=== PATIENT | male | born 1970 | race Caucasian/White ===

== ENCOUNTER 2022-05-23 17:15 | Inpatient (IN) | payer OTHER ==
[~2022-05-23] VITALS: Ht 172.7 cm; Wt 87.1 kg
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
[2022-05-23] MEDS ORDERED: FENTANYL PF 100MCG/2ML AMPUL ONE (18:07)
--- NOTE | 2022-05-23 18:13 | NUR ---
PT TAKEN TO RADIOLOGY FOR CHEST CT SCAN VIA RELDA.
[2022-05-23] MEDS ORDERED: FENTANYL PF 100MCG/2ML AMPUL IM ONE (18:30)
--- NOTE | 2022-05-23 19:11 | NUR ---
COVID SWAB COLLECTED AND SENT TO LAB
[2022-05-23] MEDS ORDERED: MORPHINE SULFATE INJ 2 MG/ML DISP.SYRIN IV ONE (19:30)
[2022-05-23] MEDS ORDERED: MORPHINE SULFATE INJ 4 MG/ML DISP.SYRIN ONE (19:34)
[2022-05-23] MEDS ORDERED: HYDROMORPHONE 1 MG/1 ML DISP.SYRIN IV ONE (20:30)
[2022-05-23] MEDS ORDERED: KETOROLAC TROMETHAMINE INJ 30 MG/ML VIAL IV ONE (20:30)
[2022-05-23] MEDS ORDERED: KETOROLAC TROMETHAMINE 15 MG/ML VIAL ONE (20:31)
[2022-05-23 21:21] LABS: BASOPHILS % (AUTO) 0.3 % (0.0-2.0); HEMATOCRIT 39 % (39-51); HEMOGLOBIN 12.8 g/dL (13.5-17.5); MEAN CORPUSCULAR HGB CONC 33 g/dl (31.0-36.0); MEAN CORPUSCULAR VOLUME 90 fL (80-96); MONOCYTES # (AUTO) 0.7 K/uL (0.1-1.30); MONOCYTES % (AUTO) 6.3 % (2.0-12.0); NEUTROPHILS # (AUTO) 9.3 K/uL (1.8-8.9); NEUTROPHILS % (AUTO) 84.4 % (43.0-81.0); PLATELET COUNT (AUTO) 220 K/uL (150-450); RED BLOOD CELL COUNT(AUTO) 4.31 MIL/uL (4.5-6.0)
[2022-05-23 21:30] LABS: CALCIUM, SERUM 8.9 mg/dL (8.5-10.1); POTASSIUM 4.1 mmol/L (3.5-5.1)
[2022-05-23] MEDS ORDERED: MAG HYDROX/AL HYDROX/SIMETH 30 ML UDC PO PRN (21:30)
[2022-05-23] MEDS ORDERED: ACETAMINOPHEN 325 MG TABLET PO PRN (21:30)
[2022-05-23] MEDS ORDERED: MAGNESIUM HYDROXIDE 30 ML UDC PO PRN (21:30)
[2022-05-23] MEDS ORDERED: Z GUARD REMEDY 4 OZ OINT TP PRN (21:30)
[2022-05-23] MEDS ORDERED: ONDANSETRON HCL/PF 4 MG/2 ML VIAL IVP PRN (21:30)
--- NOTE | 2022-05-23 22:15 | NUR ---
REPORT GIVEN TO JAKE ESPINO FOR CIRA
[2022-05-23 22:40] VITALS: BP 153/89
[2022-05-23 22:48] VITALS: BP 147/84
--- NOTE | 2022-05-23 22:48 | NUR ---
ADMISSION 52 year old male arrived to unit via gurney, transferred to bed with 3 people. Patient in A/O x4, limited body movement d/t right rib pain. Unable to fully assess skin at this time, patient refused to turned on his side d/t pain. [place] to room, unit, staff. Instructed on how to use call device for assistance. Fall precaution maintained.
[2022-05-23] MEDS: MORPHINE SULFATE INJ 2 MG/ML DISP.SYRIN IV PRN (23:06)
--- NOTE | 2022-05-23 23:06 | NUR ---
RIB PAIN Stable on room air, denies sob. Pain continuous per patient, c/o right lower rib pain 10/10. Given IV Morphine, will reassess pain level.
[2022-05-24] VITALS (7 sets, daily range): BP systolic 128–161; BP diastolic 66–91
--- NOTE | 2022-05-24 00:14 | NUR ---
LUNG SOUNDS Turned and repositioned patient, made comfortable in bed. Medicated prior repositioning. Loud popping sound heard in right lower rib, patient no c/o chest pain. SBP high 160's. Oxygen sat 98% in RA. Notified SIGN PAINTER Moy with no new orders at this time.
[2022-05-24] MEDS: HYDROCODONE/APAP 5/325MG TABLET PO PRN ×2 (01:09→21:19)
[2022-05-24] MEDS: MORPHINE SULFATE INJ 2 MG/ML DISP.SYRIN IV PRN ×2 (03:08→06:55)
--- NOTE | 2022-05-24 06:18 | NUR ---
END OF SHIFT REPORT Patient in bed, A/O x4. Sinus sohail in the Tele monitor HR 55. Left hand IV peripheral line intact. Right upper/lower rib cage pain managed with IV Morphine, mild movement aggravates more pain. Oxygen sat high 90's in RA, denies sob, no c/o chest pain. Plan for Pulmonology consult. Will endorse to oncoming RN.
--- NOTE | 2022-05-24 07:30 | NUR ---
CROSS CUT SAW OPERATOR NOTES PT IN BED, AWAKE, ALERT AND ORIENTED, NO COMPLAINT AT THIS TIME, NOT IN DISTRESS, RESPIRATIONS NORMAL, CALL LIGHT WITHIN REACH, NEEDS ATTENDED.
[2022-05-24] MEDS: PANTOPRAZOLE 40 MG TABLET.DR PO SCH (09:09)
--- NOTE | 2022-05-24 10:37 | NUR ---
CHILD AND FAMILY SERVICES WORKER NOTES PT SEEN AND EXAMINED BY DR. CONCEPCION, ORDERS GIVEN.
[2022-05-24] MEDS: HYDROMORPHONE 1 MG/1 ML DISP.SYRIN IV PRN ×4 (10:47→22:28)
[2022-05-24] MEDS ORDERED: HYDROMORPHONE MDV 1 MG in IV D5W 50 ML IV PRN (11:00)
[2022-05-24 15:17] LABS: BASOPHILS % (AUTO) 0.2 % (0.0-2.0); EOSINOPHILS % (AUTO) 0.4 % (0.0-6.0); HEMATOCRIT 40 % (39-51); LYMPHOCYTES # (AUTO) 1.9 K/uL (0.8-4.8); LYMPHOCYTES % (AUTO) 23.4 % (20.0-44.0); MEAN CORPUSCULAR HGB CONC 33 g/dl (31.0-36.0); MEAN CORPUSCULAR VOLUME 90 fL (80-96); MONOCYTES # (AUTO) 0.9 K/uL (0.1-1.30); MONOCYTES % (AUTO) 11.2 % (2.0-12.0); NEUTROPHILS # (AUTO) 5.3 K/uL (1.8-8.9); NEUTROPHILS % (AUTO) 64.8 % (43.0-81.0); PLATELET COUNT (AUTO) 211 K/uL (150-450); RED BLOOD CELL COUNT(AUTO) 4.38 MIL/uL (4.5-6.0); WHITE BLOOD COUNT (AUTO) 8.1 K/uL (4.3-11.0)
[2022-05-24 15:35] LABS: CALCIUM, SERUM 8.8 mg/dL (8.5-10.1); CREATININE 0.8 mg/dL (0.6-1.3); MAGNESIUM 2.2 mg/dL (1.8-2.4); PHOSPHORUS 3.3 mg/dL (2.5-4.9); POTASSIUM 3.9 mmol/L (3.5-5.1)
--- NOTE | 2022-05-24 18:38 | NUR ---
PLASTERER MAINTENANCE NOTES PT IN BED, SLEEPS INTERMITTENTLY, PAIN MEDS GIVEN ORDERED, VERBALIZES RELIEF AFTER ADMINISTRATION, SEEN BY DR. CONCEPCION TODAY, ALSO SEEN BY DR. LEVINE, VISITED BY PARENTS THIS AFTERNOON, PLAN OF CARE DISCUSSED WITH THEM, VERBALIZED UNDERSTANDING, NO SHORTNESS OF BREATH, SATURATING 97% ON ROOM AIR, ASSISTED WITH MEALS, NEEDS ATTENDED.
--- NOTE | 2022-05-24 19:37 | NUR ---
CARPENTER GENERAL OPENING NOTES PT IN BED, SLEEPS INTERMITTENTLY, PT NOTED WITH IV SITE AT LEFT HAND G#20, NO SHORTNESS OF BREATH, O2 SATURATION 97% ON ROOM AIR, SAFETY MEASURES IMPLEMENTED; BED IN LOWEST POSITION, BED LOCKED, CALL LIGHT WITHIN PATIENTS REACH. WILL CONTINUE TO MONITOR.
--- NOTE | 2022-05-24 21:19 | NUR ---
RN NOTE PRN NORCO 5-325MG GIVEN FOR BREAKTHROUGH PAIN 6/10 PAIN ON A NUMERIC PAIN SCALE TOLERATED WELL.
[2022-05-25] VITALS: BP 140/92
[2022-05-25] MEDS: HYDROMORPHONE 1 MG/1 ML DISP.SYRIN IV PRN ×4 (02:49→21:57)
--- NOTE | 2022-05-25 02:51 | NUR ---
RN NOTES PATIENT VERBALIZES PAIN 10/10. WAS GIVEN DAILUDID. WILL CONTINUE TO MONITOR.
[2022-05-25 04:00] VITALS: BP 143/90
--- NOTE | 2022-05-25 06:41 | NUR ---
HOOP COILING MACHINE OPERATOR CLOSING NOTES PATIENT IN BED SLEEPING EASILY AROUSED BY NAME, PATIENT NOTED WITH IV SITE AT LEFT HAND G#20, NO SHORTNESS OF BREATH, O2 SATURATION 98% ON ROOM AIR, SAFETY MEASURES IMPLEMENTED; BED IN LOWEST POSITION, BED LOCKED, CALL LIGHT WITHIN PATIENTS REACH. PAIN MEDICATION GIVING ACCORDINGLY WITH PAIN SCALE. WILL ENDORSE TO NEXT SHIFT NURSE FOR CONTINUITY IF CARE.
[2022-05-25 08:00] VITALS: BP 133/93
--- NOTE | 2022-05-25 08:08 | NUR ---
BAR FINISH OPERATOR OPENING NOTE Received patient asleep, but easily arousable to name, alert, oriented x 3, but disoriented to time. Patient c/o severe right rib pain, sharp and pulling in quality and constant. Gave patient dilaudid 1 mg IV push PRN pain. Will re-assess comfort level. Will continue to care for and monitor patient per MD POC.
[2022-05-25] MEDS: PANTOPRAZOLE 40 MG TABLET.DR PO SCH (08:16)
[2022-05-25] MEDS: HYDROCODONE/APAP 5/325MG TABLET PO PRN (11:32)
[2022-05-25 12:00] VITALS: BP 122/82
[2022-05-25] MEDS ORDERED: KETOROLAC TROMETHAMINE INJ 30 MG/ML VIAL IV ONE (15:00)
[2022-05-25 16:00] VITALS: BP 140/94
--- NOTE | 2022-05-25 18:53 | NUR ---
IS PROJECT MANAGER CLOSING NOTES PATIENT IN BED SLEEPING EASILY AROUSED BY NAME, PATIENT NOTED WITH IV SITE AT LEFT HAND G#20, PATENT & INTACT. NO SHORTNESS OF BREATH, O2 SATURATION 98% ON ROOM AIR, SAFETY MEASURES IMPLEMENTED; BED IN LOWEST POSITION, BED LOCKED, CALL LIGHT WITHIN PATIENTS REACH. PAIN MEDICATION GIVING ACCORDINGLY WITH PAIN SCALE. LAST PAIN ANALGESIC GIVEN AT 17:00 HRS, TORADOL 15 MG IV PUSH X 1 ORDERED DOSE. HOSPITALIST POC IS TO ENCOURAGE PATIENT TO TAKE PO NORCO ATC Q 4 HOURS AND USE THE IV DILAUDID LESS. WILL ENDORSE TO STATE ARCHIVIST NURSE FOR CONTINUITY OF CARE.
--- NOTE | 2022-05-25 19:41 | NUR ---
RN OPENING NOTES PATIENT IN BED SLEEPING EASILY AROUSED BY NAME, PATIENT NOTED WITH IV SITE AT LEFT HAND G#20, NO SHORTNESS OF BREATH, O2 SATURATION 98% ON ROOM AIR, SAFETY MEASURES IMPLEMENTED; BED IN LOWEST POSITION, BED LOCKED, CALL LIGHT WITHIN PATIENTS REACH.
[2022-05-25 20:14] VITALS: BP 123/84
--- NOTE | 2022-05-25 22:04 | NUR ---
RN NOTES PATIENT VERBALIZES PAIN SCALE 10/10. WAS GIVEN DAILUDID.
--- NOTE | 2022-05-25 22:34 | NUR ---
RN NOTES PATIENT WAS REASSESSED ABOUT PAIN. PAIN WAS RELIEVED 07/24.
[2022-05-26 00:44] VITALS: BP 125/82
[2022-05-26] MEDS: HYDROMORPHONE 1 MG/1 ML DISP.SYRIN IV PRN ×2 (04:01→08:04)
--- NOTE | 2022-05-26 04:01 | NUR ---
RN NOTES PATIENT VERBALIZES PAIN 10/10. WAS GIVEN DAILUDID. WILL REASSESS.
[2022-05-26 04:14] VITALS: BP 117/83
--- NOTE | 2022-05-26 06:40 | NUR ---
PERFORMING ARTIST CLOSING NOTES PATIENT IN BED SLEEPING EASILY AROUSED BY NAME, PATIENT NOTED WITH IV SITE AT LEFT HAND G#20, NO SHORTNESS OF BREATH, O2 SATURATION 98% ON ROOM AIR, SAFETY MEASURES IMPLEMENTED; BED IN LOWEST POSITION, BED LOCKED, CALL LIGHT WITHIN PATIENTS REACH. PAIN MEDICATION GIVING ACCORDINGLY WITH PAIN SCALE. ALL NEEDS ATTENDED TO. WILL ENDORSE TO NEXT SHIFT NURSE FOR CONTINUITY IF CARE.
--- NOTE | 2022-05-26 07:03 | NUR ---
FOX RAISER OPENING NOTES RECEIVED PATIENT AWAKE IN BED, A/Ox4 ABLE TO MAKE NEEDS KNOWN. ON ROOM AIR NO S/S OF RESPIRATORY DISTRESS. ON TELE MONITORING SHOWING SINUS RHYTHM HR 88. NO C/O OF CHEST PAIN OR CARDIAC DISCOMFORT. IV ACCESS L HAND #20G S/L. INTACT AND PATENT. PATIENT COMPLAINED OF PAIN 10/10 OF HIS R SIDE, HOWEVER EXPLAINED TO PATIENT THAT HIS IV PAIN MEDICATION IS NOT AVAILABLE TO GIVE. ASKED IF HE WOULD LIKE HIS PO PAIN MEDICATION, PATIENT REFUSED. PATIENT ON BEDREST, USES URINAL. SAFETY MEASURES IN PLACE: BED LOCKED AND IN LOWEST POSITION, HOB ELEVATED, SIDE RAILS UP x2, CALL LIGHT WITHIN REACH. WILL CONTINUE TO MONITOR.
[2022-05-26 08:00] VITALS: BP 116/77
[2022-05-26] MEDS: PANTOPRAZOLE 40 MG TABLET.DR PO SCH (08:04)
[2022-05-26] MEDS ORDERED: HYDROMORPHONE 1 MG/1 ML DISP.SYRIN IV PRN (11:00)
[2022-05-26] MEDS ORDERED: KETOROLAC TROMETHAMINE INJ 30 MG/ML VIAL IV PRN (11:00)
[2022-05-26] MEDS: HYDROCODONE/APAP 10/325MG TABLET PO PRN ×2 (11:42→17:45)
--- NOTE | 2022-05-26 11:43 | NUR ---
RN NOTES PATIENT COMPLAINED OF PAIN 11/23. EDUCATED PATIENT ON TRYING PO PAIN MEDICATION NARCO 10-325 MG FIRST. WILL CONTINUE TO MONITOR.
[2022-05-26 12:00] VITALS: BP 116/77
[2022-05-26 16:00] VITALS: BP 108/69
--- NOTE | 2022-05-26 17:50 | NUR ---
RN NOTES PATIENT COMPLAINED OF PAIN 10/23. PRN NARCO 10-325MG ADMINISTERED. WILL CONTINUE TO MONITOR.
--- NOTE | 2022-05-26 18:40 | NUR ---
DENIER CONTROL OPERATOR CLOSING NOTES PATIENT RESTING IN BED, A/Ox4 ABLE TO MAKE NEEDS KNOWN. STABLE ON ROOM AIR NO S/S OF RESPIRATORY DISTRESS. ON TELE MONITORING SHOWING SINUS RHYTHM HR 100. NO C/O OF CHEST PAIN OR CARDIAC DISCOMFORT. IV ACCESS L HAND #20G S/L. INTACT AND PATENT. PATIENT ON BEDREST, USES URINAL. PATIENT COMPLAINING OF PAIN BUT MANAGING WELL, RESTING IN BED. ALL PRESCRIBED MEDICATION ADMINISTERED. ALL NEEDS ATTENDED TO. SAFETY MEASURES MAINTAINED: BED LOCKED AND IN LOWEST POSITION, HOB ELEVATED, SIDE RAILS UP x2, CALL LIGHT WITHIN REACH. WILL ENDORSE TO NEXT SHIFT ANY CIRA.
--- NOTE | 2022-05-26 19:49 | NUR ---
FURRIER DESIGNER OPENING NOTES RECEIVED PATIENT RESTING IN BED, A/Ox4 ABLE TO MAKE NEEDS KNOWN. STABLE ON ROOM AIR NO S/S OF RESPIRATORY DISTRESS. ON TELE MONITORING SHOWING SINUS RHYTHM HR 98. NO C/O OF CHEST PAIN OR CARDIAC DISCOMFORT. IV ACCESS L HAND #20G SALINE LOCK. INTACT AND PATENT. PATIENT ON BEDREST, USES URINAL. PATIENT COMPLAINING OF PAIN BUT MANAGING WELL. SAFETY MEASURES MAINTAINED: BED LOCKED AND IN LOWEST POSITION, HOB ELEVATED, SIDE RAILS UP x2, CALL LIGHT WITHIN REACH.
[2022-05-26 20:00] VITALS: BP 103/65
--- NOTE | 2022-05-26 22:13 | NUR ---
RN NOTES PATIENT COMPLAINS OF PAIN SCALE OF 8/10. WAS GIVEN KETOROLAC. WILL REASSESS.
[2022-05-27] VITALS: BP 106/70
[2022-05-27 04:00] VITALS: BP 134/79
[2022-05-27] MEDS: HYDROCODONE/APAP 10/325MG TABLET PO PRN ×2 (05:20→11:36)
--- NOTE | 2022-05-27 06:44 | NUR ---
ROTARY DRILL RIG OPERATOR CLOSING NOTES PATIENT RESTING IN BED, A/Ox4 ABLE TO MAKE NEEDS KNOWN. STABLE ON ROOM AIR NO S/S OF RESPIRATORY DISTRESS. ON TELE MONITORING SHOWING SINUS RHYTHM HR 98. NO C/O OF CHEST PAIN OR CARDIAC DISCOMFORT. IV ACCESS L HAND #20G SALINE LOCK. INTACT AND PATENT. PATIENT ON BEDREST, USES URINAL. PATIENT COMPLAINING OF PAIN BUT MANAGING WELL. SAFETY MEASURES MAINTAINED: BED LOCKED AND IN LOWEST POSITION, HOB ELEVATED, SIDE RAILS UP x2, CALL LIGHT WITHIN REACH. WILL ENDORSED TO NEXT SHIFT FOR CONTINUITY OF CARE.
--- NOTE | 2022-05-27 07:40 | NUR ---
CASH APPLICATIONS ANALYST OPENING NOTES PATIENT SLEEPING IN BED, EASILY AWAKEN BY VERBAL AND TACTILE STIMULI, A/Ox4 ABLE TO MAKE NEEDS KNOWN. STABLE ON ROOM AIR NO S/S OF RESPIRATORY DISTRESS. ON TELE MONITORING SHOWING SINUS RHYTHM HR 90. NO C/O OF CHEST PAIN OR CARDIAC DISCOMFORT. IV ACCESS L HAND #20G SALINE LOCK. INTACT AND PATENT.SAFETY MEASURES MAINTAINED: BED LOCKED AND IN LOWEST POSITION, HOB ELEVATED, SIDE RAILS UP x2, CALL LIGHT WITHIN REACH. WILL CONTINUE TO MONITOR.
[2022-05-27] MEDS: PANTOPRAZOLE 40 MG TABLET.DR PO SCH (07:58)
[2022-05-27 10:57] LABS: BASOPHILS % (AUTO) 0.4 % (0.0-2.0); EOSINOPHILS % (AUTO) 6.4 % (0.0-6.0); HEMATOCRIT 42 % (39-51); HEMOGLOBIN 13.7 g/dL (13.5-17.5); LYMPHOCYTES # (AUTO) 1.6 K/uL (0.8-4.8); LYMPHOCYTES % (AUTO) 20.6 % (20.0-44.0); MEAN CORPUSCULAR HGB CONC 33 g/dl (31.0-36.0); MEAN CORPUSCULAR VOLUME 90 fL (80-96); MONOCYTES # (AUTO) 1.2 K/uL (0.1-1.30); NEUTROPHILS # (AUTO) 4.4 K/uL (1.8-8.9); NEUTROPHILS % (AUTO) 56.6 % (43.0-81.0); PLATELET COUNT (AUTO) 212 K/uL (150-450); RED BLOOD CELL COUNT(AUTO) 4.65 MIL/uL (4.5-6.0); WHITE BLOOD COUNT (AUTO) 7.7 K/uL (4.3-11.0)
[2022-05-27] MEDS ORDERED: KETO10TA2 PO (11:02)
[2022-05-27] MEDS ORDERED: HYDR-3980 PO (11:02)
[2022-05-27 11:26] LABS: CALCIUM, SERUM 8.5 mg/dL (8.5-10.1); CREATININE 0.9 mg/dL (0.6-1.3); MAGNESIUM 2.4 mg/dL (1.8-2.4)
--- NOTE | 2022-05-27 14:40 | NUR ---
DISCHARGED NOTE PATIENT DISCHARGED TO HOME IN STABLE CONDITION. A/O X4. ON RA, TOLERATING WELL WITH SPO2 OF 95%. NO SOB/DISTRESS NOTED. VITAL SIGNS TAKEN, STABLE AND RECORDED. PATIENT REFUSED TO TAKE PICTURES OF WOUNDS, REFUSED PAIN MEDICATIONS PRIOR TO LEAVING THE UNIT, DENIES PAIN OR DISCOMFORT AT THIS TIME. ALL BELONGINGS ACCOUNTED TO THE PATIENT. DISCHARGED INSTRUCTIONS RELAYED TO PATIENT. IV ACCESS REMOVED WITH NO ACTIVE BLEEDING NOTED. PATIENT LEFT THE UNIT VIA WHEELCHAIR ACCOMPANIED BY FAMILY MEMBERS AND JOVANNI GREEN. DISCHARGED.
[2022-05-28] MEDS ORDERED: HYDR-3980 PO (13:08)
[2022-05-28] MEDS ORDERED: KETO10TA2 PO (13:08)
== END 2022-05-27 14:45 | disposition home or self-care (01) | DRG 200 ==
LOC: ER 17:20 → TELE 21:21
PROVIDERS: ADMIT Nurse Practitioner Acute Care; ATTEND Nurse Practitioner Acute Care
DX: S27.2XXA Traumatic hemopneumothorax, initial encounter (principal); J90 Pleural effusion, not elsewhere classified; S22.41XA Multiple fractures of ribs, right side, initial encounter for closed fracture; S27.321A Contusion of lung, unilateral, initial encounter; V17.4XXA Pedal cycle driver injured in collision with fixed or stationary object in traffic accident, initial encounter; Y93.55 Activity, bike riding; Y92.89 Other specified places as the place of occurrence of the external cause; W22.09XA Striking against other stationary object, initial encounter; S20.211A Contusion of right front wall of thorax, initial encounter; Z96.642 Presence of left artificial hip joint
CPT/HCPCS: 36415; 71045-TC; 71250-TC; 80048-TC; 83735-TC; 84100-TC; 85025-TC; 85730-TC; 87081-TC; 97112-TC; 97116-TC; 97530-TC; C9803; G0378; J1170; J1885; J2270; J3010